=== PATIENT | male | born 1960 | race Caucasian/White ===

== ENCOUNTER 2016-08-19 12:31 | Emergency (ER) | payer BC ==
[~2016-08-19] VITALS: Ht 175.3 cm; Wt 84.1 kg
[2016-08-19 12:50] VITALS: BP 95/60; PULSE 70; RESP 18; TEMP 98; O2SAT 96
[2016-08-19] MEDS ORDERED: LISI-515 PO (13:09)
[2016-08-19 13:10] VITALS: BP 116/81; PULSE 85; RESP 18; O2SAT 99
[2016-08-19] MEDS ORDERED: BUPIVACAINE HCL PF 0.5% 10 ML VIAL INFIL ONE (13:30)
[2016-08-19] MEDS ORDERED: TETANUS/DIPHTHERIA TOXOID ADULT 0.5 ML VIAL IM ONE (13:30)
[2016-08-19] MEDS ORDERED: LIDOCAINE HCL 1% 50 ML VIAL INFIL ONE (13:30)
--- NOTE | 2016-08-19 13:46 | RADHPO ---
EXAM DATE/TIME: 08/19/2016 13:14 [place] COMPARISON: No previous studies available for comparison. INDICATIONS : Complains of left foot pain, a picture slid off the wall and cut patients toes. MEDICAL HISTORY : None. SURGICAL HISTORY : None. ENCOUNTER: Initial ACUITY: 1 day PAIN SCORE: 10/10 LOCATION: Left foot FINDINGS: There is no fracture of the distal tuff of the second third and fourth digits worse about the third. There is no radiopaque foreign bodies. CONCLUSION: Fractures as described above.. Bethel Vargas MD FACR on August 19, 2016 at 13:42 Board Certified Radiologist. This report was verified electronically.
[2016-08-19] MEDS ORDERED: HYDR-3533 PO (14:54)
[2016-08-19] MEDS ORDERED: NAPR500 PO (14:54)
[2016-08-19] MEDS ORDERED: CLIN1CAP6 PO (14:54)
--- NOTE | 2016-08-19 14:54 | PD ---
HPI Chief Complaint: Musculoskeletal Complaint Time Seen by Provider: 13:15 Travel History International Travel<30 days: No Contact w/Intl Traveler<30days: No Traveled to known affect area: No History of Present Illness HPI Is a well 55-year-old man who presents to the emergency department after he dropped a heavy metal frame on his left foot. He estimates the frame weighs about 100 pounds. His a complex macerated laceration to the third toe. All the toes are sore. He otherwise has been feeling generally well and healthy. History Past Medical History Narrative Medical Hypertension Tetanus Vaccination: < 5 Years Influenza Vaccination: Yes Social History Alcohol Use: Yes (DAILY) Tobacco Use: No Allergies-Medications (Allergen,Severity, Reaction): Coded Allergies: No Known Allergies (Unverified , 08/19/16) Reported Meds & Prescriptions Reported Meds & Active Scripts Active Reported Lisinopril 20 Mg Tab 20 Mg PO DAILY Review of Systems Except as stated in HPI: all other systems reviewed are Neg Physical Exam Narrative GENERAL: Well-appearing 55-year-old man, no acute distress. SKIN: Warm and dry. CARDIOVASCULAR: Warm and well perfused. RESPIRATORY: Normal rate and effort. MUSCULOSKELETAL: Focused examination of the left lower extremity reveals bruising and subungual hematoma on the left great toe, there is some bleeding and some abrasion to the left second toe with some subungual hematoma. The left third toe is completely macerated with laceration two third through the nail bed. The distal segment seems to be perfused. Exposed bone is crushed. NEUROLOGICAL: Awake and alert. No gross deficits. Data Data Last Documented VS Vital Signs Date Time Temp Pulse Resp B/P Pulse Ox O2 Delivery O2 Flow Rate FiO2 08/19/16 13:10 85 18 116/81 99 Room Air 08/19/16 12:50 98.0 Orders Foot, Complete ([id number]) (08/19/16 ) Lidocaine 1% Inj (50 Ml) (Xylocaine 1% I (08/19/16 13:30) Bupivacaine Pf 0.5% Inj (Marcaine Pf 0.5 (08/19/16 13:30) Tetanus/Diphtheria Tox Adult (Tetanus/Di (08/19/16 13:30) MDM Medical Decision Making Medical Screen Exam Complete: Yes Emergency Medical Condition: Yes Interpretation(s) Left foot x-ray: Fracture second third and fourth toe, worse on the third. Differential Diagnosis open tuft fracture, nail bed laceration, subungual hematomas, there Narrative Course Medical decision making This is a 55-year-old man who dropped a heavy frame on his left foot. He has tuft fractures of second third and fourth toe. The second toe is open. This required complex washout and repair. He'll need close follow-up. Diagnosis Primary Impression: Open toe fracture Qualified Code: S92.522B - Open displaced fracture of middle phalanx of lesser toe of left foot, initial encounter Additional Instructions: Take antibiotics as prescribed. Take Naprosyn and Lortab for pain. Keep leg elevated as much as possible. Keep leg clean and dry. Change bandage daily. Follow-up with your primary doctor when you return home for referral to podiatry, or follow-up with podiatry in [place]. This will need close follow-up to ensure proper healing. Sutures should be removed in 10 days. This can be done with your primary physician, the cyber incident handler, or here in the emergency department. Med/Other Pt SpecificInfo: Prescription(s) given Scripts Naproxen (Naprosyn)500 Mg [id number] Mg PO BID PRN (PAIN SCALE 1 TO 10) #20 TAB Prov:Juan Alberto Kwong MD 08/19/16 Hydrocodone-Acetaminophen (Lortab)5-325 Mg Tab1-2 Tab PO Q6H PRN (PAIN) #12 TAB Prov:Juan Alberto Kwong MD 08/19/16 Clindamycin 300 Mg [id number] Mg PO Q8HR 7 Days Prov:Juan Alberto Kwong MD 08/19/16 Disposition: 01 DISCHARGE HOME Condition: Stable Juan Alberto Kwong MD Aug 19, 2016 14:54
== END 2016-08-19 15:18 | disposition home or self-care (01) ==
LOC: PHED 12:31
DX: S92.522B Displaced fracture of middle phalanx of left lesser toe(s), initial encounter for open fracture (principal); S92.912A Unspecified fracture of left toe(s), initial encounter for closed fracture; W20.8XXA Other cause of strike by thrown, projected or falling object, initial encounter
CPT/HCPCS: 11760; 73630